=== PATIENT | male | born 1970 | race Two or more races ===

== ENCOUNTER 2018-02-02 20:05 | Emergency (ER) | payer OTHER ==
[~2018-02-02] VITALS: Ht 175.3 cm; Wt 113.4 kg
[2018-02-03] MEDS ORDERED: INTESTINEX680 M1 PO (00:11)
[2018-02-03] MEDS ORDERED: CLINDAMYCIN HC300 MG PO (00:11)
== END 2018-02-03 12:19 | disposition home or self-care (01) ==
LOC: ER 20:05
DX: S61.217A Laceration without foreign body of left little finger without damage to nail, initial encounter (principal); L03.012 Cellulitis of left finger; W45.8XXA Other foreign body or object entering through skin, initial encounter; Y93.89 Activity, other specified; Y92.89 Other specified places as the place of occurrence of the external cause; Y99.8 Other external cause status